=== PATIENT | female | born 1955 ===

== ENCOUNTER 2023-06-19 08:54 | Day surgery (SDC) | payer OTHER | END 2023-06-19 15:35 | disposition home or self-care (01) | LOC: AMB-ENDOS 08:54 | PROVIDERS: ATTEND Surgery | DX: D12.4 Benign neoplasm of descending colon (principal); D12.3 Benign neoplasm of transverse colon; D12.5 Benign neoplasm of sigmoid colon; Z86.010 Personal history of colon polyps; K64.8 Other hemorrhoids; Z20.822 Contact with and (suspected) exposure to COVID-19; K57.30 Diverticulosis of large intestine without perforation or abscess without bleeding ==